=== PATIENT | male | born 1975 | race Caucasian/White ===

== ENCOUNTER 2020-06-21 14:40 | Observation (INO) ==
[2020-06-21] MEDS ORDERED: Acetaminophen 325 MG TABLET PO PRN (16:16)
[2020-06-21] MEDS ORDERED: Melatonin 3 MG TABLET PO PRN (16:16)
[2020-06-21] MEDS ORDERED: Ondansetron 4 MG/2 ML VIAL IVP PRN (16:16)
[2020-06-21] MEDS ORDERED: Ringers Solution, Lactated 1,000 ML IVC ONE (16:35)
[2020-06-21] MEDS ORDERED: EPINEPHrine 1 MG/ML VIAL IM PRN (17:09)
[2020-06-21 17:26] LABS: Basophils % 0.1 %; Hematocrit 42.9 % (37.5-50.1); Hemoglobin 15.4 g/dL (12.9-16.9); Immature Granulocytes % 0.6 % (0-4); Lymphocytes # 0.6 K/mcL (0.6-4.6); Lymphocytes % 3.5 %; Mean Corpuscular HGB Conc 35.9 g/dL (31.6-35.5); Mean Corpuscular Hemoglobin 32.5 pg (28.0-33.3); Mean Corpuscular Volume 90.5 fL (83.0-100.0); Mean Platelet Volume 11.4 fL (9.4-12.4); Monocytes # 0.2 K/mcL (0.0-1.3); Monocytes % 0.9 %; Platelet Count 228 K/mcL (140-400); Red Blood Count 4.74 M/mcL (4.19-5.50); Red Cell Distribution Width 11.5 % (11.5-14.5); Segmented Neutrophils % 94.9 %; White Blood Count 16.9 K/mcL (4.3-11.1)
[2020-06-21 17:33] LABS: INR 1.1; Prothrombin Time 12.6 Seconds (9.4-12.1)
[2020-06-21 17:47] LABS: Alanine Aminotransferase 23 Units/L (7-52); Alkaline Phosphatase 49 Units/L (34-104); Aspartate Amino Transferase 19 Units/L (13-39); BUN/Creatinine Ratio 22 (6-26); Bilirubin,Direct 0.1 mg/dL (0.0-0.2); Bilirubin,Indirect 0.5 mg/dL (0.0-1.0); Bilirubin,Total 0.6 mg/dL (0.3-1.0); Blood Urea Nitrogen 17 mg/dL (6-20); Calcium 8.6 mg/dL (8.6-10.3); Carbon Dioxide 24 mEq/L (23-29); Chloride 107 mEq/L (98-107); Glucose 119 mg/dL (70-105); Lipase 3 Units/L (11-82); Magnesium 2.2 mg/dL (1.6-2.6); Osmolality,Calculated 289 (280-300); Phosphorous 1.9 mg/dL (2.7-4.5); Potassium 4.1 mEq/L (3.5-5.1); Sodium 138 mEq/L (136-145); eGFR For African Americans > 60 (> 60); eGFR For Non-African Americans > 60 (> 60)
[2020-06-21] MEDS: Famotidine 20 MG/2 ML VIAL IVP SCH (18:11)
[2020-06-21] MEDS: MethylPREDNISolone 40 MG/ML VIAL IVP SCH (23:38)
[2020-06-22] MEDS: Famotidine 20 MG/2 ML VIAL IVP SCH (05:24)
[2020-06-22 05:39] LABS: Hematocrit 38.8 % (37.5-50.1); Mean Corpuscular HGB Conc 35.1 g/dL (31.6-35.5); Mean Corpuscular Hemoglobin 31.8 pg (28.0-33.3); Mean Corpuscular Volume 90.7 fL (83.0-100.0); Mean Platelet Volume 11.3 fL (9.4-12.4); Platelet Count 218 K/mcL (140-400); Red Blood Count 4.28 M/mcL (4.19-5.50); Red Cell Distribution Width 11.7 % (11.5-14.5); White Blood Count 10.9 K/mcL (4.3-11.1)
[2020-06-22 05:47] LABS: INR 1.1
[2020-06-22 05:49] LABS: Hemoglobin 13.6 g/dL (12.9-16.9)
[2020-06-22 06:02] LABS: Alanine Aminotransferase 19 Units/L (7-52); Albumin 3.7 g/dL (3.5-5.7); Albumin/Globulin Ratio 1.9 (1.1-2.2); Alkaline Phosphatase 42 Units/L (34-104); Aspartate Amino Transferase 14 Units/L (13-39); BUN/Creatinine Ratio 19 (6-26); Bilirubin,Total 0.6 mg/dL (0.3-1.0); Blood Urea Nitrogen 13 mg/dL (6-20); Calcium 8.4 mg/dL (8.6-10.3); Carbon Dioxide 25 mEq/L (23-29); Chloride 107 mEq/L (98-107); Globulin 1.9 g/dL (2.4-3.5); Glucose 158 mg/dL (70-105); Magnesium 2.2 mg/dL (1.6-2.6); Osmolality,Calculated 289 (280-300); Potassium 4.1 mEq/L (3.5-5.1); Sodium 138 mEq/L (136-145); Total Protein 5.6 g/dL (6.4-8.9); eGFR For African Americans > 60 (> 60); eGFR For Non-African Americans > 60 (> 60)
[2020-06-22 07:08] VITALS: BP 110/69
[2020-06-22] MEDS: MethylPREDNISolone 40 MG/ML VIAL IVP SCH (08:01)
== END 2020-06-22 10:31 | disposition home or self-care (01) ==
LOC: 3ANU → SUATTDRO 15:50
PROVIDERS: ADMIT Internal Medicine; ATTEND Internal Medicine